=== PATIENT | female | born 1965 | race Caucasian/White ===

== ENCOUNTER 2017-05-20 16:33 | Emergency (ER) | payer OTHER ==
[2017-05-20 16:49] VITALS: BP 140/93
--- NOTE | 2017-05-20 17:17 | PHYS DOC ---
Past History Past Medical History: Anxiety, Other Past Surgical History: Smoking: Non-smoker Alcohol Use: Occasionally Drug Use: None Adult General Chief Complaint Chief Complaint: HEADACHE HPI HPI 52 year old female patient without history of migraine headache complaining of sudden onset of left sided headache that started 8 days ago after she overexerted herself as a severe pain rated her pain10 over 10 as the worse pain in her life. Patient states her pain improved to 5 with continued to be a constant pain with nausea and mild photophobia with radiation to her neck without fever and focal neurodeficit. Patient states she plan to have the procedure and during her preoperative evaluation her physician give her prescription of oxycodone and muscle relaxation. She stated after taking oxycodone her pain improved but a friend of her who is a physician recommended to have evaluation for possible aneurysm. Patient denies family history of function headache by herself or in her family. Patient states she was started on control pills 3 months ago and since then started to have episodes of headache. Review of Systems Review of Systems Constitutional: Denies fever or chills [] Eyes: Denies change in visual acuity, redness, or eye pain [] HENT: Denies nasal congestion or sore throat [] Respiratory: Denies cough or shortness of breath [] Cardiovascular: No additional information not addressed in HPI [] GI: Denies abdominal pain, vomiting, bloody stools or diarrhea , reports nausea [] : Denies dysuria or hematuria [] Musculoskeletal: Denies back pain or joint pain [] Integument: Denies rash or skin lesions [] Neurologic: reports headache, denies focal weakness or sensory changes [] Endocrine: Denies polyuria or polydipsia [] All other systems were reviewed and found to be within normal limits, except as documented in this note. Physical Exam Physical Exam Constitutional: Well developed, well nourished, mild distress, non-toxic appearance. [] HENT: Normocephalic, atraumatic, oropharynx moist, no oral exudates, nose normal. [] Eyes: PERRLA, EOMI, conjunctiva normal, no discharge. [] Neck: Normal range of motion, no tenderness, supple, no stridor. [] Cardiovascular:Heart rate regular rhythm, no murmur [] Lungs & Thorax: Bilateral breath sounds clear to auscultation [] Abdomen: Bowel sounds normal, soft, no tenderness, no masses, no pulsatile masses. [] Skin: Warm, dry, no erythema, no rash. [] Back: No tenderness, no CVA tenderness. [] Extremities: No tenderness, no cyanosis, no clubbing, ROM intact, no edema. [] Neurologic: Alert and oriented X 3, normal motor function, normal sensory function, no focal deficits noted. [] Psychologic: Affect normal, judgement normal, mood normal. [] Current Patient Data Vital Signs Vital Signs Date Time Temp Pulse Resp B/P (MAP) Pulse Ox O2 Delivery O2 Flow Rate FiO2 05/20/17 16:49 98.4 90 16 97 Room Air EKG EKG [] Radiology/Procedures Radiology/Procedures [] [address] [address] IMAGING REPORT Signed PATIENT: RIDGE PETERSON ACCOUNT: [id number] : 1965 LOCATION: ER AGE: 52 SEX: F EXAM STATUS: REG ER ORD. PHYSICIAN: PREMA DOMINGUEZ MD REASON: headache for 8 days PROCEDURE: CT HEAD WO CONTRAST CT HEAD WO CONTRAST Date: 05/20/2017 5:09 PM Clinical Indication: Headache/Dizziness x 8 days at base of skull, no hx of TIA/Stroke Comparison: None. Technique: 5 mm axial tomographic images were obtained of the head without contrast. These were viewed on brain and bone windows. Findings: Approximately 4.5 x 2.5 cm CSF attenuating structure within the left parietal region. The brain parenchyma is normal in attenuation. No intra-axial mass or fluid collection. No acute hemorrhage. The ventricles are normal in size, shape, and morphology. The genao-white matter junction is normal. The basilar cisterns are patent. Chronic appearing changes of the incompletely visualized left maxillary sinus. The visualized portions of the orbits and globes are normal. The mastoid air cells are clear. No aggressive osseous lesion or fracture. Impression: 1. No acute intracranial process. 2. Nonaggressive appearing 4.5 x 2.5 cm CSF attenuating structure within the left parietal region. Findings may relate to an arachnoid cyst. Epidermoid cyst is considered less likely. This does not have typical appearance of encephalomalacia from prior infarct or injury. Congenital or developmental insult is also a possibility. RS Compliance Statement: One or more of the following individualized dose reduction techniques were utilized for this examination: 1. Automated exposure control 2. Adjustment of the mA and/or kV according to patient size 3. Use of iterative reconstruction technique Electronically signed by: Aman Mcdaniels MD (05/20/2017 5:30 PM) [facility] [place] DICTATED AND SIGNED BY: AMAN MCDANIELS MD DATE: 05/20/17 171 CC: PREMA DOMINGUEZ MD; NON,STAFF ~ Course & Med Decision Making Course & Med Decision Making Pertinent Labs and Imaging studies reviewed. (See chart for details) Evaluation of patient in ER showed 52-year-old female patient with sudden onset of headache one week ago and continuing moderate headache since then. Patient had unremarkable physical exam and CT head and labs except for 2 x 4 cm arachnoid cyst. Patient for definitive treatment in ER. Patient instructed to follow up with on-call neurologist for evaluation of arachnoid cyst. Patient instructed to check with her [employer] regarding continuing contraception. Dragon Disclaimer Dragon Disclaimer This electronic medical record was generated, in whole or in part, using a voice recognition dictation system. Departure Departure: Impression: Primary Impression: Headache Additional Impression: Arachnoid cyst Disposition: 01 HOME, SELF-CARE (At 1749) Referrals: NON,STAFF (PCP) DAI CLIFTON MD Patient Instructions: General Headache Without Cause Additional Instructions: Stop taking oxycodone Follow-up with neurologist in 2-3 days Return to ER if not getting better Scripts Ondansetron (ZOFRAN ODT) 4 Mg Tab.rapdis 1 TAB SL Q8HRS, #15 TAB Prov: PREMA DOMINGUEZ MD 05/20/17 Butalbital/Aspirin/Caffeine (FIORINAL 50-325-40 MG CAPSULE) 1 Each Capsule 1 EACH PO QID Y for HEADACHE, #20 CAP Prov: PREMA DOMINGUEZ MD 05/20/17 Problem Qualifiers PREMA DOMINGUEZ MD May 20, 2017 17:17
[2017-05-20] MEDS ORDERED: KETOROLAC 30 MG/ML VIAL. IV ONE (17:30)
[2017-05-20] MEDS ORDERED: diphenhydrAMINE 50 MG/ML VIAL IVP ONE (17:30)
[2017-05-20] MEDS ORDERED: ONDANSETRON PF 4 MG/2 ML VIAL. IV ONE (17:30)
[2017-05-20 17:31] LABS: BASO # 0.1 x10^3/uL (0.0-0.2); BASO % 1 % (0-3); EOS # 0.1 x10^3/uL (0.0-0.7); EOS % 2 % (0-3); HEMATOCRIT 39.5 % (36.0-47.0); LYMPH # 1.9 x10^3/uL (1.0-4.8); LYMPH % 32 % (24-48); MEAN CORPUSCULAR HEMOGLOBIN 28 pg (25-35); MEAN CORPUSCULAR HGB CONC 33 g/dL (31-37); MEAN CORPUSCULAR VOLUME 86 fL (79-100); MONO # 0.4 x10^3/uL (0.0-1.1); MONO % 8 % (0-9); NEUT # 3.4 x10^3uL (1.8-7.7); NEUT % 58 % (31-73); PLATELET COUNT 180 x10^3/uL (140-400); RED BLOOD COUNT 4.59 x10^6/uL (3.50-5.40); RED CELL DISTRIBUTION WIDTH 13.5 % (11.5-14.5)
--- NOTE | 2017-05-20 17:33 | RAD ---
CT HEAD WO CONTRAST Date: 05/20/2017 5:09 PM Clinical Indication: Headache/Dizziness x 8 days at base of skull, no hx of TIA/Stroke Comparison: None. Technique: 5 mm axial tomographic images were obtained of the head without contrast. These were viewed on brain and bone windows. Findings: Approximately 4.5 x 2.5 cm CSF attenuating structure within the left parietal region. The brain parenchyma is normal in attenuation. No intra-axial mass or fluid collection. No acute hemorrhage. The ventricles are normal in size, shape, and morphology. The genao-white matter junction is normal. The basilar cisterns are patent. Chronic appearing changes of the incompletely visualized left maxillary sinus. The visualized portions of the orbits and globes are normal. The mastoid air cells are clear. No aggressive osseous lesion or fracture. Impression: 1. No acute intracranial process. 2. Nonaggressive appearing 4.5 x 2.5 cm CSF attenuating structure within the left parietal region. Findings may relate to an arachnoid cyst. Epidermoid cyst is considered less likely. This does not have typical appearance of encephalomalacia from prior infarct or injury. Congenital or developmental insult is also a possibility. PQRS Compliance Statement: One or more of the following individualized dose reduction techniques were utilized for this examination: 1. Automated exposure control 2. Adjustment of the mA and/or kV according to patient size 3. Use of iterative reconstruction technique Electronically signed by: Aman Mcdaniels MD (05/20/2017 5:30 PM) [facility]
[2017-05-20 17:41] LABS: ALBUMIN 3.2 g/dL (3.4-5.0); ALBUMIN/GLOBULIN RATIO 0.9 (1.0-1.7); CALCIUM 8.8 mg/dL (8.5-10.1); CREATININE 0.8 mg/dL (0.6-1.0); GFR 75.6; POTASSIUM 3.8 mmol/L (3.5-5.1); TOTAL BILIRUBIN 0.2 mg/dL (0.2-1.0); TOTAL PROTEIN 6.8 g/dL (6.4-8.2)
[2017-05-20] MEDS ORDERED: ONDA4TAB10 SL (17:51)
[2017-05-20] MEDS ORDERED: BUTA1CAP31 PO (17:51)
== END 2017-05-20 18:11 | disposition home or self-care (01) ==
LOC: ER 16:33
DX: R51 Headache (principal); G93.0 Cerebral cysts
CPT/HCPCS: 36415; 70450; 80053; 85025; 96374; 96375; 99285; J1200; J1885; J2405